=== PATIENT | female | born 1990 | race Two or more races ===

== ENCOUNTER 2024-12-18 16:15 | Emergency (ER) | payer MEDICAID, SELFPAY ==
[2024-12-18 16:16] VITALS: BMI 25.8
--- NOTE | 2024-12-18 17:18 | PD.EDADULT ---
ED General RME/HPI General Chief complaint: General Adult/Misc Complain Stated complaint: COUGH/FEVERS X3DAY Source: patient Arrival date/time: 12/18/24 16:15 Mode of arrival: ambulatory Limitations: no limitations RME / HPI RME / HPI narrative: Patient been treated for strep throat 5 days ago for which she is taking antibiotics. Today she complains of an extremely harsh cough which she believes is scraping her throat and causing tissue abrasion. Onset (ago): day(s) (5 days) Severity scale (1-10): 6 Quality: burning and constant Relieving factors: none Exacerbating factors: eating Associated symptoms: cough Treatments prior to arrival: none Related Data Previous Rx's ?Medication ?Instructions ?Recorded naproxen 500 mg tablet (Naprosyn) 500 mg PO BID PRN pain #30 tabs 07/04/21 bacitracin 500 unit/gram topical 1 applic topical TID 7 days #28.4 11/18/21 ointment grams hydrocodone 5 mg-acetaminophen 325 1 tab PO BID PRN pain #10 tabs 11/18/21 mg tablet ibuprofen 800 mg tablet 800 mg PO TID PRN pain #30 tabs 11/18/21 hydrocodone 5 mg-acetaminophen 325 1 tab PO BID PRN pain #10 tabs 01/07/24 mg tablet ibuprofen 800 mg tablet 800 mg PO TID PRN pain #30 tabs 01/07/24 promethazine-DM 6.25 mg-15 mg/5 mL 5 ml PO Q6H #473 mL 12/18/24 oral syrup Allergies Allergy/AdvReac Type Severity Reaction Status Date / Time No Known Allergies Allergy Verified 12/18/24 16:18 ED Exam General Limitations: Present no limitations General appearance: Present alert and in no apparent distress Head Head exam: Present atraumatic Eye Eye exam: Present normal appearance ENT ENT exam: Present normal exam and normal oropharynx Neck Neck exam: Present normal inspection Chest Chest inspection: Present normal inspection Back Exam Back exam: Present normal inspection and full ROM Neurological Exam Neurological exam: Present alert and oriented X3 Skin Skin exam: Present warm, dry, intact and normal color Course Course Course Narrative: Patient will have 1 [facility] while she is here Quality Measures none Orders Category Date Time Status HYDROcodone/APAP 10/325 [[facility] 10/325] Med 12/18/24 17:18 Once 1 tab PO X1 ONE Ordered Vital Signs Vital signs: N/A Discharge Plan Plan Patient Disposition: HOME (Self Care) Discharge Disposition comment: Discharge no apparent distress Patient condition on transfer: Stable Prescriptions/Referrals Prescriptions/Med Rec: New promethazine-DM 6.25-15 mg/5 mL syrup 5 ml PO Q6H Qty: 473 0RF No Action bacitracin 500 unit/gram ointment 1 applic topical TID 7 Days Qty: 28.4 1RF ibuprofen 800 mg tablet 800 mg PO TID PRN (Reason: pain) Qty: 30 0RF hydrocodone-acetaminophen 5-325 mg tablet 1 tab PO BID MDD 10 PRN (Reason: pain) Qty: 10 0RF naproxen [Naprosyn] 500 mg tablet 500 mg PO BID PRN (Reason: pain) Qty: 30 0RF ibuprofen 800 mg tablet 800 mg PO TID PRN (Reason: pain) Qty: 30 0RF hydrocodone-acetaminophen 5-325 mg tablet 1 tab PO BID MDD 10 PRN (Reason: pain) Qty: 10 0RF Referrals: No Primary/Family,Physician [Primary Care Provider] - In 1 week Problem List Clinical Impression: Cough Patient/Caregiver Discharge Instructions Discharge Activity: activity as tolerated Print Language: Afghan Stand Alone Forms: Tiffanie Award Info., Patient Portal Info Letter PA/PRINT ROOM WORKER Supervising Physician MAUREEN/PRINT ROOM WORKER Supervising Physician: ANAHY FORTE Narrative Sign out note: NA [facility] hospital course: NA Procedures done or offered: NA Clinical Information Provided by none Medical Records Reviewed None Meds/Rx Considered, not Ordered None Labs/Rad/Tests considered, not Ordered None Chronic Illness/Social Conditions which may negatively complicate care or outcome(s)-explain: None or not applicable Diagnosis Differential diagnosis: Cough Dispositon Disposition: Discharge Home
== END 2024-12-18 17:32 | disposition home or self-care (01) ==
PROVIDERS: Emergency Provider Emergency Medicine
DX: R05.9 Cough, unspecified (principal)
CPT/HCPCS: 99283; A9270